=== PATIENT | female | born 1950 | race Caucasian/White ===

== ENCOUNTER 2018-03-10 10:49 | Emergency (ER) | payer OTHER ==
[~2018-03-10] VITALS: Ht 167.6 cm; Wt 104.3 kg
--- NOTE | 2018-03-10 10:56 | ED GI/GU/ABDOMINAL COMPLAINT ---
History of Present Illness General Chief Complaint: Abdominal Pain/Flank Pain Stated Complaint: BIBA, ABD PAIN Source: patient Exam Limitations: no limitations Vital Signs & Intake/Output Vital Signs & Intake/Output ED Intake and Output 03/11 0000 03/10 1200 Intake Total 1000 Output Total Balance 1000 Intake, IV 1000 Patient 230 lb Weight Weight Reported by Patient Measurement Method Allergies Coded Allergies: No Known Allergies (03/10/18) Reconcile Medications Dicyclomine HCl 10 MG CAPSULE 1 CAP PO TID GASTROENTERITIS Ondansetron HCl (Zofran) 4 MG TABLET 1 TAB PO Q6-8P PRN NAUSEA Oxycodone HCl/Acetaminophen (Percocet 5-325 MG Tablet) 5 MG-325 MG TABLET 1 TAB PO BID PRN PAIN Triage Nurses Notes Reviewed? yes ? N Is pt currently ? No Onset: Gradual Duration: constant Timing: recent history Severity Numbers: 7 HPI: Patient is a 67-year-old female with past medical history of type 2 diabetes, CAD status post stent placement, DVT currently on Plavix, hypertension hypothyroidism who presents emergency room with a 6 day history of nausea vomiting diarrhea and generalized abdominal pain. Patient is noted yellow loose watery stool production with no black no blood noted patient is also complaining of bilious emesis. Patient is remote history of cholecystectomy Patient complains of headache generalized weakness and fatigue and chills. Denies any vaginal bleeding or discharge denies any dysuria hematuria denies any chest pain arm pain shortness of breath cough hemoptysis leg swelling (Mauro Tapia) Past History Travel History Traveled to [place] past 21 day No Medical History Any Pertinent Medical History? see below for history Cardiovascular: CAD, hypertension Endocrine: diabetes, hypothyroidism Surgical History Surgical History: cholecystectomy Psychosocial History What is your primary language Bel[place]ian Family History Hx Contributory? No (Mauro Tapia) Review of Systems Review of Systems Constitutional: Reports: see HPI, chills. EENTM: Reports: no symptoms. Respiratory: Reports: no symptoms. Cardiovascular: Reports: no symptoms. GI: Reports: see HPI, abdominal pain. Genitourinary: Reports: no symptoms. Musculoskeletal: Reports: no symptoms. Skin: Reports: no symptoms. Neurological/Psychological: Reports: no symptoms. Hematologic/Endocrine: Reports: no symptoms. Immunologic/Allergic: Reports: no symptoms. All Other Systems: Reviewed and Negative (Mauro Tapia) Physical Exam Physical Exam General Appearance: mild distress Head: atraumatic Eyes: Bilateral: normal appearance. Neck: normal inspection Respiratory: normal breath sounds Cardiovascular: bradycardia Gastrointestinal: normal bowel sounds, soft, tenderness (GENERALIZED) Extremities: normal range of motion Neurologic/Psych: no motor/sensory deficits, awake Skin: intact, normal color Core Measures ACS in differential dx? No Sepsis Present: No Sepsis Focused Exam Completed? No (Asad SNOW,Mauro) Progress Differential Diagnosis: AAA, AMI, appendicitis, biliary colic, bowel obstruction , colon cancer, diverticulitis, endometritis, esophageal varices, gastritis, hepatitis, hernia, hemorrhoids, ischemic bowel, inflamm bowel dis, kidney stone, ovarian cyst, ovarian torsion, pancreatitis, PID/cervicitis, peptic ulcer, PUD/ GERD, perforated viscous, SBO, UTI/pyelo Plan of Care: Orders Procedure Date/time Status LACTIC ACID 03/10 1403 Active Add-on Test (ER Only) 03/10 1159 Active ACETONE 03/10 1120 Complete TROPONIN LEVEL 03/10 1103 Complete LIPASE 03/10 1103 Complete LACTIC ACID 03/10 1103 Complete DIRECT BILIRUBIN 03/10 1103 Complete COMPREHENSIVE METABOLIC PANEL 03/10 1103 Complete CBC WITHOUT DIFFERENTIAL 03/10 1103 Complete AMYLASE 03/10 1103 Complete EKG 03/10 1051 Active Laboratory Tests 03/10/18 1120: Anion Gap 7, Estimated GFR 37 L, BUN/Creatinine Ratio 12.9, Glucose 208 H, Lactic Acid 1.7, Calcium 9.2, Total Bilirubin 0.9, Direct Bilirubin 0.2, AST 19, ALT 29, Alkaline Phosphatase 78, Troponin I < 0.01, Total Protein 6.0 L, Albumin 3.2 L, Globulin 2.8, Albumin/Globulin Ratio 1.1, Amylase < 30 L, Lipase 77, CBC w Diff NO MAN DIFF REQ, RBC 5.03, MCV 88.0, MCH 29.8, MCHC 33.8, RDW 16.5 H, MPV 11.0 H, Gran % 68.1, Lymphocytes % 18.3 L, Monocytes % 10.4 H, Eosinophils % 2.3, Basophils % 0.9, Absolute Granulocytes 4.6, Absolute Lymphocytes 1.2, Absolute Monocytes 0.7 H, Absolute Eosinophils 0.2, Absolute Basophils 0.1, Acetone Level NEGATIVE Patient on initial presentation was in mild distress Patient had unremarkable blood work CT scan currently pending 1401- patient was reevaluated and is noted to be resting comfortably at bedside states symptoms have significantly improved 1511- patient again was reevaluated was updated on CT scan no clear etiology of patient's abdominal pain however patient was able tolerate by mouth upon discharge patient was strongly advised to follow up with gastroenterology. Is noted the patient does have concerns of 45-60 bpm on youth nutritional monitor where I had a long extensive conversation with the patient where she has known bradycardia and a known property claims manager Dr. Geronimo in which she is also aware of the bradycardia in which she was strongly advised to follow up with this property claims manager for persistent bradycardia however patient denies any symptomatic bradycardia at this time Discussed disposition plan with patient who agrees and has no questions Diagnostic Imaging: Viewed by Me: CT Scan. Radiology Impression: no acute abnormality, no fracture Initial ED EKG: multiple artifact 44 bpm, Comments: PATIENT: ROMEO CARRASCO PRESENT AGE: 67 PATIENT ACCOUNT NO: [id number] : 49 LOCATION: [facility] ORDERING PHYSICIAN: Mauro SNOW SERVICE DATE: 03/10/18 EXAM TYPE: CAT - CT ABD & PELVIS W IV CONTRAST EXAMINATION: CT ABDOMEN AND PELVIS WITH CONTRAST CLINICAL INFORMATION: Abdominal pain. COMPARISON: None TECHNIQUE: Multidetector volumetric imaging was performed of the abdomen and pelvis following IV administration of 95 mL of Optiray 320 intravenous contrast. Sagittal and coronal reformatted images were obtained on the technologist's workstation. DLP: 629 mGy-cm FINDINGS: LUNG BASES: Subsegmental atelectasis at both lung bases. LIVER, GALLBLADDER, AND BILIARY TREE: The liver is normal in size, shape, and attenuation. No focal hepatic lesion or biliary ductal dilatation is present. Cholecystectomy. Prominence of the common bile duct which is within normal limits in the setting of cholecystectomy. PANCREAS: Unremarkable. SPLEEN: Small splenule at the hilum. Otherwise unremarkable. ADRENAL GLANDS: Unremarkable. KIDNEYS AND URETERS: Left kidney is severely atrophic. Right kidney is small in size measuring 8.6 cm and demonstrates a multilobulated contour. No hydronephrosis, mass, or nephrolithiasis. BLADDER: Unremarkable. GASTROINTESTINAL TRACT: Scattered colonic diverticulosis most advanced in the sigmoid colon. No pericolonic inflammatory changes. There is submucosal fat within the cecum likely reflecting the sequela of prior inflammation. The appendix is normal and air-filled. The stomach appears normal. The small bowel is nondistended. There is no bowel obstruction. There is no free air. ABDOMINAL WALL: No significant hernia is appreciated. LYMPH NODES: Normal. VASCULAR: Severe atheromatous changes in the abdominal aorta and its branch vessels. There is a bifurcated aortoiliac graft in place. PELVIC VISCERA: No pelvic mass. OSSEOUS STRUCTURES: Multilevel degenerative spondylotic changes in the lumbar spine with grade 1 anterolisthesis of L4 on L5. Multilevel facet arthropathy. Severe spinal canal stenosis at L2-L3 related to disc osteophyte complex, facet arthropathy, and ligamentum flavum infolding. IMPRESSION: - No acute inflammatory changes identified in the abdomen or pelvis. - Advanced degenerative spondylotic changes resulting in severe spinal canal stenosis L2-L3. - Colonic diverticulosis without superimposed diverticulitis. - Severe left renal atrophy. DICTATED BY: Yari Frederick MD DATE/TIME DICTATED:03/10/181434 ACCESS COORDINATOR:PAULO DATE/TIME TRANSCRIBED:03/10/181434 (Mauro Tapia) Departure Departure Disposition: HOME OR SELF CARE Condition: Stable Clinical Impression Primary Impression: Abdominal pain Secondary Impressions: Bradycardia, Gastroenteritis Referrals: Gaudencio RAMIREZ,Jessica Rogers (PCP/Family) Nirav Foster MD Additional Instructions: As discussed begin a 24-hour clear liquid and bland diet to rest her bowels. Begin the prescription of Percocet for breakthrough pain Bentyl for abdominal complaints and Zofran for nausea. Prescription is waiting at [facility]. If no better in 2 days follow-up with gastroenterology Dr. Foster. If symptoms worsen return to emergency room Follow-up with the property claims manager this week Departure Forms: Customer Survey General Discharge Information Prescriptions: Current Visit Scripts Ondansetron HCl (Zofran) 1 TAB PO Q6-8P PRN NAUSEA #10 TAB Oxycodone HCl/Acetaminophen (Percocet 5-325 MG Tablet) 1 TAB PO BID PRN PAIN #6 TAB Dicyclomine HCl 1 CAP PO TID #9 CAP (Mauro Tapia) PA/NOTE SPECIALIST Co-Sign Statement Statement: ED Attending supervision documentation- x I saw and evaluated the patient. I have also reviewed all the pertinent lab results and diagnostic results. I agree with the findings and the plan of care as documented in the PA's/NOTE SPECIALIST's documentation. [] I have reviewed the ED Record and agree with the PA's/NOTE SPECIALIST's documentation. [] Additions or exceptions (if any) to the PAs/NOTE SPECIALIST's note and plan are summarized below: [] (Rupinder RAMIREZ,Tomasz)
[2018-03-10 11:37] LABS: ABSOLUTE BASOPHIL COUNT 0.1 /CUMM (0.0-0.2); ABSOLUTE EOSINOPHIL COUNT 0.2 /CUMM (0.0-0.7); ABSOLUTE GRANULOCYTE CT 4.6 /CUMM (1.4-6.5); ABSOLUTE LYMPH COUNT 1.2 /CUMM (1.2-3.4); ABSOLUTE MONOCYTE COUNT 0.7 /CUMM (0.10-0.60); BASOPHIL % 0.9 % (0.0-2.0); EOSINOPHIL % 2.3 % (0-5); GRANULOCYTE % 68.1 % (42.2-75.2); HEMATOCRIT 44.2 % (37-47); MEAN CORPUSCULAR HGB 29.8 PG (27.0-31.0); MEAN CORPUSCULAR HGB CONC 33.8 G/DL (33.0-37.0); PLATELET COUNT 187 /CUMM (130-400); RBC DISTRIBUTION WIDTH 16.5 % (11.5-14.5); RED BLOOD CELL CT 5.03 /CUMM (4.20-5.40); WHITE BLOOD CELL COUNT 6.7 /CUMM (4.8-10.8)
--- NOTE | 2018-03-10 14:47 | CT SCAN REPORT ---
EXAMINATION: CT ABDOMEN AND PELVIS WITH CONTRAST CLINICAL INFORMATION: Abdominal pain. COMPARISON: None TECHNIQUE: Multidetector volumetric imaging was performed of the abdomen and pelvis following IV administration of 95 mL of Optiray 320 intravenous contrast. Sagittal and coronal reformatted images were obtained on the technologist's workstation. DLP: 629 mGy-cm FINDINGS: LUNG BASES: Subsegmental atelectasis at both lung bases. LIVER, GALLBLADDER, AND BILIARY TREE: The liver is normal in size, shape, and attenuation. No focal hepatic lesion or biliary ductal dilatation is present. Cholecystectomy. Prominence of the common bile duct which is within normal limits in the setting of cholecystectomy. PANCREAS: Unremarkable. SPLEEN: Small splenule at the hilum. Otherwise unremarkable. ADRENAL GLANDS: Unremarkable. KIDNEYS AND URETERS: Left kidney is severely atrophic. Right kidney is small in size measuring 8.6 cm and demonstrates a multilobulated contour. No hydronephrosis, mass, or nephrolithiasis. BLADDER: Unremarkable. GASTROINTESTINAL TRACT: Scattered colonic diverticulosis most advanced in the sigmoid colon. No pericolonic inflammatory changes. There is submucosal fat within the cecum likely reflecting the sequela of prior inflammation. The appendix is normal and air-filled. The stomach appears normal. The small bowel is nondistended. There is no bowel obstruction. There is no free air. ABDOMINAL WALL: No significant hernia is appreciated. LYMPH NODES: Normal. VASCULAR: Severe atheromatous changes in the abdominal aorta and its branch vessels. There is a bifurcated aortoiliac graft in place. PELVIC VISCERA: No pelvic mass. OSSEOUS STRUCTURES: Multilevel degenerative spondylotic changes in the lumbar spine with grade 1 anterolisthesis of L4 on L5. Multilevel facet arthropathy. Severe spinal canal stenosis at L2-L3 related to disc osteophyte complex, facet arthropathy, and ligamentum flavum infolding. IMPRESSION: - No acute inflammatory changes identified in the abdomen or pelvis. - Advanced degenerative spondylotic changes resulting in severe spinal canal stenosis L2-L3. - Colonic diverticulosis without superimposed diverticulitis. - Severe left renal atrophy.
[2018-03-10] MEDS ORDERED: PERCOCET 5-3251 EACH PO (15:18)
[2018-03-10] MEDS ORDERED: DICYCLOMINE HCL10 M1 PO (15:18)
[2018-03-10] MEDS ORDERED: ZOFRAN4 M2 PO (15:18)
[2018-03-10 16:18] VITALS: BP 119/58
== END 2018-03-10 16:20 ==
LOC: ERH 10:49
PROVIDERS: Physician Assistant
DX: K52.9 Noninfective gastroenteritis and colitis, unspecified (principal); R00.1 Bradycardia, unspecified; R11.2 Nausea with vomiting, unspecified; R19.7 Diarrhea, unspecified; R10.84 Generalized abdominal pain; R51 Headache; R53.1 Weakness
CPT/HCPCS: 74177; 93005; 93010; 96374; 96375; J2405